=== PATIENT | female | born 1990 | race Caucasian/White ===

== ENCOUNTER 2017-11-24 12:00 | Inpatient (IN) | payer OTHER ==
[~2017-11-24] VITALS: Ht 167.6 cm; Wt 71.7 kg
[2017-12-08] MEDS ORDERED: GUMMIES CHILDR1 EACH PO (01:42)
== END 2017-12-10 12:12 | disposition home or self-care (01) | DRG 775 ==
LOC: LDR 12-07 23:20 → OB/GYN 12-07 23:32 → LDR 12-07 23:49 → OB/GYN 12-08 07:55
PROC: 0KQM0ZZ Repair Perineum Muscle, Open Approach (ICD-10-PCS; principal; 2017-12-07)
PROC: 10E0XZZ Delivery of Products of Conception, External Approach (ICD-10-PCS; 2017-12-07)
PROC: 0UQGXZZ Repair Vagina, External Approach (ICD-10-PCS; 2017-12-07)
PROC: 4A1HXCZ Monitoring of Products of Conception, Cardiac Rate, External Approach (ICD-10-PCS; 2017-12-07)
DX: O70.1 Second degree perineal laceration during delivery (principal); Z37.0 Single live birth; Z3A.39 39 weeks gestation of pregnancy

== ENCOUNTER 2017-12-01 08:15 | Outpatient (CLI) | payer OTHER | END 2017-12-01 09:02 | disposition home or self-care (01) | LOC: NST 08:15 | DX: Z34.83 Encounter for supervision of other normal pregnancy, third trimester (principal) ==